=== PATIENT | male | born 1960 ===

== ENCOUNTER 2016-09-24 20:03 | Observation (INO) | payer OTHER ==
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
[2016-09-24] MEDS ORDERED: Sodium Chloride 0.9% 10 ML Syringe FLUSH PRN (22:50)
[2016-09-24] MEDS ORDERED: Ondansetron 4 MG/2 ML SDV IVPUSH PRN (22:50)
[2016-09-25 05:30] VITALS: BP 156/82
[2016-09-25] MEDS ORDERED: Lisinopril 10 MG Tab PO SCH (08:00)
--- NOTE | 2016-09-26 22:44 | CR ---
DATE OF SERVICE: 09/24/2016 CLINICAL DATA: Syncope episode and elevated WBC. PA AND LATERAL CHEST No priors. The heart size is normal. There is calcification of the aortic arch. The lungs are clear. No pneumothorax. No pleural effusions. No other significant findings. IMPRESSION: No evidence of acute intrathoracic disease. [id number] [facility]
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
== END 2016-09-25 06:45 | disposition home or self-care (01) ==
LOC: LB.ED 20:03 → LB.MS 21:40
PROVIDERS: ADMIT Nurse Practitioner Family; ATTEND Nurse Practitioner Family
DX: R55 Syncope and collapse (principal); I10 Essential (primary) hypertension; E78.00 Pure hypercholesterolemia, unspecified; F17.210 Nicotine dependence, cigarettes, uncomplicated; E11.9 Type 2 diabetes mellitus without complications
CPT/HCPCS: 36415; 71020; 80053; 84484; 85025; 85730; 88740; 93005; 99285; G0378